=== PATIENT | male | born 1980 | race Caucasian/White ===

== ENCOUNTER 2020-12-24 14:57 | Inpatient (IN) | payer SELFPAY ==
[2020-12-24 15:09] VITALS: BMI 26.6
[2020-12-24 15:34] VITALS: BP 103/71; PULSE 101; RESP 16; TEMP 36.6; O2SAT 98
--- NOTE | 2020-12-24 16:05 | PC.NURSE ---
pts belongings were bagged and placed out of reach of the pt
[2020-12-24 16:07] LABS: Add Urine Microscopic? NO; Charge for UA Resulting for Rev
--- NOTE | 2020-12-24 16:11 | ED_ITS ---
HPI - Psych General: Chief Complaint: Psychiatric Symptoms Stated Complaint: hearing and seeing things Time Seen by Provider: 12/24/20 15:50 History of Present Illness: HPI Narrative: 40-year-old male presents emergency room with complaints of auditory and visual hallucinations. He says he is hearing voices following him about how they will hurt him. Is been going on for last couple weeks about 6 weeks ago he had Covid. He is resolved from it. He has not had any further sequela or difficulty breathing cough or anosmia. He has no personal or family history of psychosis he is not on any medications and never previously been admitted to the hospital for mental health issues. complaint: other (psychosis) Onset (ago): week(s) Duration: getting worse History of same: No Relieving factors: none Exacerbating factors: none Context: significant life stressor (Recent COVID-19 diagnosis) Associated psychiatric symptoms: auditory hallucinations and visual hallucinations Associated symptoms: Reports auditory hallucinations and visual hallucinations; Deny homicidal ideation or suicidal ideation Treatments prior to arrival: none Review of Systems Const: Denies: fever(s), chills, body aches, change in appetite, fatigue or m alaise ENMT: Denies: throat pain, ear or mastoid pain, nasal discharge or nasal congestion Card: Denies: chest pain, edema, dyspnea on exertion or orthopnea Resp: Denies: dyspnea, productive cough or non-productive cough GI: Denies: abdominal pain, nausea, vomiting, hematemesis, coffee ground emesis, diarrhea, constipation, bloating, hematochezia or melena : Denies: flank pain, dysuria, urinary frequency or urinary urgency Skin/Breast: Denies: rash or pruritus Psych: Reports: visual hallucinations and auditory hallucinations; Denies: suicidal ideation or homicidal ideation Physical Exam Const: COMMON NORMALS: no acute distress GENERAL APPEARANCE: cooperative and comfortable ORIENTATION/CONSCIOUSNESS: Yes awake HENMT: COMMON NORMALS: normocephalic and atraumatic HEAD & SCALP: normocephalic and atraumatic Neck/C-Spine: COMMON NORMALS: full ROM, no lymphadenopathy, supple and no JVD Resp: COMMON NORMALS: normal respiratory effort, No retractions, No use of accessory muscles and clear to auscultation bilaterally AUSCULTATION: clear to auscultation bilaterally Cardio: COMMON NORMALS: no JVD, regular rate, regular rhythm and No murmurs present (Cardio) RATE: regular rate RHYTHM: regular rhythm GI: COMMON NORMALS: Soft to palpation and No hepatosplenomegaly present AUSCULTATION: Yes normoactive bowel sounds PALPATION: Yes Soft to palpation, No Tenderness to palpation present (GI), No Guarding due to palpation present (GI) and Yes No hepatosplenomegaly present Extremity: COMMON NORMALS: normal to inspection, capillary refill normal, no clubbing, cyanosis or edema, no calf tenderness and no pedal edema Skin: COMMON NORMALS: no rashes or lesions noted GENERAL SKIN EXAM: no rashes or lesions noted Course Vital Signs: Vital signs: Vital Signs Temperature 98.1 F 12/26/20 16:27 Pulse Rate 81 12/26/20 16:27 Respiratory Rate 17 12/26/20 16:27 Blood Pressure 107/68 12/26/20 16:27 Pulse Oximetry 97 12/26/20 16:27 MDM - Psych MDM Narrative: Medical decision making narrative: Acute psychosis possibly related to recent Covid infection. Urine drug screen positive for methamphetamine and marijuana. Patient does state he uses medical marijuana. Discussed with Dr. Kmi will admit. Lab Data: Labs: Lab Results 12/24/20 12/24/20 12/24/20 Range/Units 15:25 15:25 19:08 WBC 7.5 (4.0-10.0) 10^3/ uL RBC 4.80 (4.1-5.3) 10^6/u L Hgb 11.0 L (11.7-16.6) g/dL Hct 38.2 L (42.0-52.0) % MCV 79.6 L (80-94) fL MCH 22.9 L (28.0-34.0) pg MCHC 28.8 L (30.0-36.0) g/dL RDW 17.5 H (12.1-15.1) % Plt Count 351 (130-400) 10^3/c mm MPV 10.4 (7.4-10.4) fL Neut % (Auto) 54.7 % Lymph % (Auto) 29.1 % Bailey % (Auto) 10.5 % Eos % (Auto) 3.9 % Baso % (Auto) 1.5 % Neut # (Auto) 4.13 (1.8-7.7) 10^3/u L Lymph # (Auto) 2.2 (0.8-4.8) 10^3/u L Bailey # (Auto) 0.8 (0.2-0.9) 10^3/u L Eos # (Auto) 0.3 (0.0-0.8) 10^3/u L Baso # (Auto) 0.1 (0.0-0.1) 10^3/u L Nucleated RBC % (a uto) 0 % Nucleated RBCs # 0.0 /100WBC Sodium (136-145) mmol/L Potassium (3.5-5.1) mmol/L Chloride (98-107) mmol/L Carbon Dioxide (22-29) mmol/L Anion Gap (5-19) BUN (6-20) mg/dL Creatinine (0.7-1.2) mg/dL GFR Calculation (90-130) mL/min Glucose (65-115) mg/dL Calculated Osmolal ity (285-295) mOsm/k g Calcium (8.5-10.5) mg/dL Total Bilirubin (0.15-1.2) mg/dL AST (0-40) U/L ALT (0-41) U/L Alkaline Phosphata se (40-130) IU/L Total Protein (6.6-8.7) g/dL Albumin (3.5-5.2) g/dL Globulin (1.3-4.6) g/dL Urine Color Yellow (Yellow) Urine Appearance Clear (CLEAR) Urine pH 6.5 (5-7) Ur Specific Gravit y 1.015 (1.005-1.030) Urine Protein Neg (Negative) Urine Glucose (UA) Norm (Normal) Urine Ketones Negative (Negative) Urine Blood Neg (Negative) Urine Nitrate Negative (Negative) Urine Bilirubin Neg (Negative) Urine Urobilinogen Norm (Negative) mg/dL Ur Leukocyte Sheridan ase Negative (Negative) Salicylates (3-10) mg/dL Urine Opiates Scre en Negative (Negative) ng/mL Acetaminophen (10-30) ug/mL Ur Barbiturates Sc reen Negative (Negative) ng/mL Ur Phencyclidine S crn Negative (Negative) ng/mL Ur Amphetamines Sc reen Positive H (Negative) ng/mL U Benzodiazepines Scrn Negative (Negative) ng/mL Urine Cocaine Scre en Negative (Negative) ng/mL U Marijuana (THC) Screen Positive H (Negative) ng/mL 12/24/20 Range/Units 19:08 WBC (4.0-10.0) 10^3/ uL RBC (4.1-5.3) 10^6/u L Hgb (11.7-16.6) g/dL Hct (42.0-52.0) % MCV (80-94) fL MCH (28.0-34.0) pg MCHC (30.0-36.0) g/dL RDW (12.1-15.1) % Plt Count (130-400) 10^3/c mm MPV (7.4-10.4) fL Neut % (Auto) % Lymph % (Auto) % Bailey % (Auto) % Eos % (Auto) % Baso % (Auto) % Neut # (Auto) (1.8-7.7) 10^3/u L Lymph # (Auto) (0.8-4.8) 10^3/u L Bailey # (Auto) (0.2-0.9) 10^3/u L Eos # (Auto) (0.0-0.8) 10^3/u L Baso # (Auto) (0.0-0.1) 10^3/u L Nucleated RBC % (a uto) % Nucleated RBCs # /100WBC Sodium 141 (136-145) mmol/L Potassium 3.8 (3.5-5.1) mmol/L Chloride 108 H (98-107) mmol/L Carbon Dioxide 22 (22-29) mmol/L Anion Gap 14.8 (5-19) BUN 9 (6-20) mg/dL Creatinine 0.7 (0.7-1.2) mg/dL GFR Calculation 126.2 (90-130) mL/min Glucose 92 (65-115) mg/dL Calculated Osmolal ity 290 (285-295) mOsm/k g Calcium 8.6 (8.5-10.5) mg/dL Total Bilirubin 0.2 (0.15-1.2) mg/dL AST 14 (0-40) U/L ALT 13 (0-41) U/L Alkaline Phosphata se 82 (40-130) IU/L Total Protein 6.7 (6.6-8.7) g/dL Albumin 3.8 (3.5-5.2) g/dL Globulin 2.9 (1.3-4.6) g/dL Urine Color (Yellow) Urine Appearance (CLEAR) Urine pH (5-7) Ur Specific Gravit y (1.005-1.030) Urine Protein (Negative) Urine Glucose (UA) (Normal) Urine Ketones (Negative) Urine Blood (Negative) Urine Nitrate (Negative) Urine Bilirubin (Negative) Urine Urobilinogen (Negative) mg/dL Ur Leukocyte Sheridan ase (Negative) Salicylates < 0.3 L (3-10) mg/dL Urine Opiates Scre en (Negative) ng/mL Acetaminophen < 5.0 L (10-30) ug/mL Ur Barbiturates Sc reen (Negative) ng/mL Ur Phencyclidine S crn (Negative) ng/mL Ur Amphetamines Sc reen (Negative) ng/mL U Benzodiazepines Scrn (Negative) ng/mL Urine Cocaine Scre en (Negative) ng/mL U Marijuana (THC) Screen (Negative) ng/mL Discharge Plan Discharge Patient Disposition: Admitted As Inpatient Admit Provider: Keven Kim Clinical Impression: Acute psychosis, Drug-induced psychotic disorder, Methamphetamine use Condition: Stable Discharge Diet: Regular Discharge Activity: Resume usual activity Coding Level of Care Code ED Recreation Director for John Fwjulia Exam Comprehensive
[2020-12-24 16:22] LABS: Bilirubin Urine Neg (Negative); Blood Urine Neg (Negative); Glucose Urine UA Norm (Normal); Ketones Urine Negative (Negative); Leukocyte Esterase Urine Negative (Negative); Nitrate Urine Negative (Negative); Protein Urine Neg (Negative); Specific Gravity, Urine 1.015 (1.005-1.030); Urine Appearance Clear (CLEAR); Urine Color Yellow (Yellow); Urobilinogen Urine Norm (Negative); pH Urine 6.5 (5-7)
[2020-12-24 16:38] LABS: Amphetamines Screen Urine Positive (Negative); Barbiturates Screen Urine Negative (Negative); Benzodiazepines Screen Urine Negative (Negative); Cocaine Screen Urine Negative (Negative); Opiate Screen Urine Negative (Negative); PCP Screen Urine Negative (Negative); THC Screen Urine Positive (Negative)
[2020-12-24 18:23] VITALS: BP 104/78; PULSE 89; RESP 16; O2SAT 99
[2020-12-24 19:13] LABS: Basophils # 0.1 10^3/uL (0.0-0.1); Basophils % 1.5 %; Eosinophils # 0.3 10^3/uL (0.0-0.8); Eosinophils % 3.9 %; Hematocrit 38.2 % (42.0-52.0); Lymphocytes # 2.2 10^3/uL (0.8-4.8); Lymphocytes % 29.1 %; Mean Corpuscular HGB Conc 28.8 g/dL (30.0-36.0); Mean Corpuscular Hemoglobin 22.9 pg (28.0-34.0); Mean Corpuscular Volume 79.6 fL (80-94); Mean Platelet Volume 10.4 fL (7.4-10.4); Monocytes # 0.8 10^3/uL (0.2-0.9); Monocytes % 10.5 %; Neutrophils # 4.13 10^3/uL (1.8-7.7); Neutrophils % 54.7 %; Nucleated Red Blood Cells % 0 %; Platelet Count 351 10^3/cmm (130-400); Red Cell Distribution Width 17.5 % (12.1-15.1); White Blood Count 7.5 10^3/uL (4.0-10.0)
[2020-12-24 19:45] LABS: Alanine Aminotransferase 13 U/L (0-41); Albumin Level 3.8 g/dL (3.5-5.2); Alkaline Phosphatase 82 IU/L (40-130); Anion Gap 14.8 (5-19); Aspartate Amino Transferase 14 U/L (0-40); Blood Urea Nitrogen 9 mg/dL (6-20); Calcium 8.6 mg/dL (8.5-10.5); Carbon Dioxide 22 mmol/L (22-29); Chloride 108 mmol/L (98-107); Creatinine Clr Calc Pharmacy 151.9452; Globulin 2.9 g/dL (1.3-4.6); Glomerular Filtration Rate 126.2 mL/min (90-130); Glucose 92 mg/dL (65-115); Osmolality Calculated 290 mOsm/kg (285-295); Potassium 3.8 mmol/L (3.5-5.1); Sodium 141 mmol/L (136-145); Total Bilirubin 0.2 mg/dL (0.15-1.2); Total Protein 6.7 g/dL (6.6-8.7)
[2020-12-24 19:48] LABS: Acetaminophen < 5.0 ug/mL (10-30); Salicylate < 0.3 mg/dL (3-10)
[2020-12-24 20:30] VITALS: BP 106/70; PULSE 96; RESP 15; TEMP 37.1; O2SAT 98
[2020-12-24 21:22] VITALS: BP 108/88; PULSE 90; RESP 15; TEMP 37.2; O2SAT 98
--- NOTE | 2020-12-24 23:08 | PC.NURSE ---
Skin check revealed no wounds or injuries.
[2020-12-25 06:00] VITALS: BP 116/74; PULSE 86; RESP 20; TEMP 36.8; O2SAT 96
[2020-12-25] MEDS: pantoprazole DR 40 mg Tablet PO (09:05)
[2020-12-25] MEDS: nicotine 21 mg Patch 1 PATCH TRANSDERMA (12:07)
--- NOTE | 2020-12-25 12:12 | P.HP_ITS ---
Providers/Chief Complaint Admitting Physician: Keven Kim MD Chief Complaint: SI HPI NPU History of Present Illness Sourav Coronado is a 40 year old male with no previous history of psychiatric difficulties who presented to the [facility] emergency room last night with auditory and visual hallucinations 6 weeks after having Covid. He was medically stabilized and cleared in the ED here. The ED note states: 40-year-old male presents emergency room with complaints of auditory and visual hallucinations. He says he is hearing voices following him about how they will hurt him. It's been going on for last couple weeks. About 6 weeks ago he had Covid. He is resolved from it. He has not had any further sequela or difficulty breathing cough or anosmia. He has no personal or family history of psychosis he is not on any medications and never previously been admitted to the hospital for mental health issues. The patient says that he had started feeling what he calls paranoid few months ago. He says that when people are talking, I get this feeling its about me. This phenomena did not cause him too much distress or interfere with his functioning. The patient had Covid about 6 weeks ago, and after that he started hearing voices. He over hears people talking, such as his girlfriend or friends, and they are plotting to kill him. This is very disturbing to him and he wonders what is wrong with his brain. He does have insight that these are an irregular phenomenon, and not voices of actual people who are going to kill him. No visual hallucinations. He says his mood is usually really good. He denies suicidal or homicidal ideation. He never had hallucinations prior to t his. However, the patient says that he lost 2 or 3 days this week, he realized he was at his parents house and [place], but does not recall how he got there or the couple of days leading up to it. He thought he would come to the hospital to get checked out, as this is very abnormal for him. The patient says that he drinks alcohol 2 or 3 times a week, about 3 or 4 shots of liquor each time. He has never experienced withdrawal symptoms when he stops drinking. He has never had a DUI or experienced blackouts from drinking. He says that he used to use methamphetamine, but has been clean for 5 years. He notes that the urine drug screen was positive for meth during this admission, but does not remember using it. He seems sincere in his puzzlement about it. He says he has a marijuana medical card and smokes regularly. He smokes cigarettes 1 pack/day. The patient says that he was hospitalized here 10 years ago for drug related symptoms. Then he attended outpatient rehab as a part of probation. He did not take psychiatric medications back then and has not taken any psychiatric medications ever in his life. Psychiatric history: As above. Substance use history: As above. Family history: Patient denies mental health issues on either side of the family. Number people on his mother's side use heroin. 2 maternal uncles completed suicide. Psychosocial history: The patient grew up around the , because his father was in the [place]. His father retired to [employer]. He attended [employer] in [place], [place] for high school. He was once and has 3 children from that relationship. He has a girlfriend now, and they are considering living together, but he does not want to move in together until he resolves his current issues. 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 Legal history: No legal difficulties. Medical history: He has peptic ulcer disease and takes sucralfate and omeprazole. Review of Systems General: Reports: 10 or more systems reviewed and unremarkable except in HPI and below Meds NPU Home Medications Medication Instructions Recorded Confirmed Last Taken Type albuterol sulfate [ProAir HFA] 2 puff INHALATION BID PRN 12/25/20 12/25/20 Unknown History pantoprazole [Protonix] 40 mg PO DAILY 12/25/20 12/25/20 Unknown History promethazine-DM 10 ml PO QID PRN 12/25/20 12/25/20 Unknown History Allergies Allergy/AdvReac Type Severity Reaction Status Date / Time amoxicillin Allergy Unknown Verified 12/24/20 15:15 cefaclor [From Ceclor] Allergy Unknown Verified 12/24/20 15:48 erythromycin base Allergy Unknown Verified 12/24/20 15:15 hydrocortisone Allergy Unknown Verified 12/24/20 15:48 [From [place]] Mental Status Exam MSE Comments: The patient made good eye contact and was cooperative and open to the exam. No psychomotor agitation or retardation. Speech was had a regular rate and rhythm without pressure. Alert, oriented to person, place, time, situation. Attention and concentration were intact. Able to spell the word WORLD correctly forwards and backwards. Memory is intact. Remembers 3/3 words immediately and 3/3 at 3 minutes. He knows the names of the past 5 presidents. Mood is anxious and worried. Affect is pleasant, but nervous. Thought process: Logical and goal directed. No racing thoughts or flight of ideas. Thought content: He has auditory hallucinations as described above. No visual hallucinations. There are no delusions noted. No suicidal or homicidal ideation. Insight and judgment are are good, and notable in that people with this degree of hallucinations do not often have this degree of insight. Vitals/I&O/Wt Last Vital Signs Temp 98.2 F 12/25/20 06:00 Pulse 86 12/25/20 06:00 Resp 20 H 12/25/20 06:00 BP 116/74 12/25/20 06:00 Pulse Ox 96 12/25/20 06:00 Weight last 48 hrs Weight 81.647 kg Data NPU : 12/24/20 19:08 12/24/20 19:08 A&P Additional A&P Information Sourav Coronado is a 40 year old male with no previous history of psychiatric difficulties who presented to the [facility] emergency room last night with auditory and visual hallucinations 6 weeks after having Covid. A post Covid psychosis syndrome has been described in which people in their 30s, 40s, and 50s develop psychosis weeks after the infection, and have good insight into what is happening. Of course, there are other causes as well, and we should rule out medical, metabolic, and other causes. 1. Start Abilify 5 mg daily for psychosis. 2. Continue every 15 minute checks for safety. 3. Encourage individual, group and milieu therapies. 4. Encourage sober living treatment after discharge at the highest level of care to which he is willing to commit. Involuntary Hold Information 96 Hour Hold: 96 Hour Involuntary Admission: No Attestations NPU Medical Necessity Statement*: Psychiatric hospitalization is medically necessary to prevent access to lethal means, to reevaluate medication, and to coordinate a safe discharge. Patient will be in the hospital for over 2 midnights. Likely length of stay is 3 to 5 days. Coding Level of Care Code Acute Sewing Machine Maintenance Mechanic for John Davis
[2020-12-25 14:00] VITALS: BP 116/74; PULSE 101; RESP 16; TEMP 36.8; O2SAT 99
[2020-12-25 16:28] VITALS: PULSE 106; RESP 16; O2SAT 100
[2020-12-25] MEDS: ARIPiprazole 10 mg Tablet 5 MG PO (17:51)
[2020-12-25 20:44] VITALS: BP 116/71; PULSE 127; RESP 17; TEMP 36.7; O2SAT 88
[2020-12-26 00:14] VITALS: PULSE 99; RESP 17; O2SAT 98
[2020-12-26 05:58] VITALS: BP 109/72; PULSE 99; RESP 18; TEMP 36.3; O2SAT 97
[2020-12-26] MEDS: pantoprazole DR 40 mg Tablet PO (09:22)
[2020-12-26] MEDS: ARIPiprazole 10 mg Tablet 5 MG PO (09:22)
[2020-12-26] MEDS: ibuprofen 800 mg tablet PO (10:51)
[2020-12-26 14:00] VITALS: BP 107/68; PULSE 81; RESP 17; TEMP 36.7; O2SAT 97
[2020-12-26] MEDS: nicotine 2 mg Gum BUCCAL (15:38)
--- NOTE | 2020-12-26 16:23 | P.DS_ITS ---
Reason for Visit Reason for Visit: SI Brief History: History of Present Illness Sourav Coronado is a 40 year old male with no previous history of psychiatric difficulties who presented to the [facility] emergency room last night with auditory and visual hallucinations 6 weeks after having Covid. He was medically stabilized and cleared in the ED here. The ED note states: 40-year-old male presents emergency room with complaints of auditory and visual hallucinations. He says he is hearing voices following him about how they will hurt him. It's been going on for last couple weeks. About 6 weeks ago he had Covid. He is resolved from it. He has not had any further sequela or di fficulty breathing cough or anosmia. He has no personal or family history of psychosis he is not on any medications and never previously been admitted to the hospital for mental health issues. The patient says that he had started feeling what he calls paranoid few months ago. He says that when people are talking, I get this feeling its about me. This phenomena did not cause him too much distress or interfere with his functioning. The patient had Covid about 6 weeks ago, and after that he started hearing voices. He over hears people talking, such as his girlfriend or friends, and they are plotting to kill him. This is very disturbing to him and he wonders what is wrong with his brain. He does have insight that these are an irregular phenomenon, and not voices of actual people who are going to kill him. No visual hallucinations. He says his mood is usually really good. He denies suicidal or homicidal ideation. He never had hallucinations prior to this. However, the patient says that he lost 2 or 3 days this week, he realized he was at his parents house and [place], but does not recall how he got there or the couple of days leading up to it. He thought he would come to the hospital to get checked out, as this is very abnormal for him. The patient says that he drinks alcohol 2 or 3 times a week, about 3 or 4 shots of liquor each time. He has never experienced withdrawal symptoms when he stops drinking. He has never had a DUI or experienced blackouts from drinking. He says that he used to use methamphetamine, but has been clean for 5 years. He notes that the urine drug screen was positive for meth during this admission, but does not remember using it. He seems sincere in his puzzlement about it. He says he has a marijuana medical card and smokes regularly. He smokes cigarettes 1 pack/day. The patient says that he was hospitalized here 10 years ago for drug related symptoms. Then he attended outpatient rehab as a part of probation. He did not take psychiatric medications back then and has not taken any psychiatric medications ever in his life. Psychiatric history: As above. Substance use history: As above. Family history: Patient denies mental health issues on either side of the family. Number people on his mother's side use heroin. 2 maternal uncles completed suicide. Psychosocial history: The patient grew up around the , because his father was in the [place]. His father retired to [email or web address]. He attended [employer] in [place], [place] for high school. He was once and has 3 children from that relationship. He has a girlfriend now, and they are considering living together, but he does not want to move in together until he resolves his current issues. 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 Legal history: No legal difficulties. Medical history: He has peptic ulcer disease and takes sucralfate and omeprazole. Hospital Course Hospital Course He slowly adjusted to the individual, group and milieu therapies provided. He was started on Abilify and had modest improvement. He was able to contract for safety prior to discharge. During the hospitalization, patient had routine laboratory studies which were within normal limits except for few outliers. Additionally there was a general medical evaluation which was also within normal limits and revealed no new acute processes. Discharge Summary: At the time of discharge, lethality was denied and psychosis was resolving. Mood and anxiety were well managed. Patient endorsed a plan to avoid all drugs of abuse and follow-up with the aftercare recommendations of the treatment team. Patient was evaluated and deemed to be absent credible lethality, and had achieved the maximum benefit from an inpatient hospitalization, so was discharged. Involuntary Hold Information 96 Hour Hold: 96 Hour Involuntary Admission: No Mental Status Exam MSE Comments: This is a well-nourished well-developed white male in hospital scrubs with adequate grooming and eye contact. No abnormal movements. Cooperative with exam in no acute distress. Speech was normal rate and volume. Mood described as better, affect congruent. Thought process organized. Thought content: Patient denied suicidal or homicidal ideation, there were no delusions reported or noted, he denied any auditory or visual hallucination and concentration were intact and memory appeared reliable but none were formally tested. Alert and oriented x3. Insight and judgment are improving and impulse control is improving. Discharge Data Vitals: Last Vital Signs Temp 98.1 F 12/26/20 14:00 Pulse 81 12/26/20 14:00 Resp 17 12/26/20 14:00 BP 107/68 12/26/20 14:00 Pulse Ox 97 12/26/20 14:00 Discharge Plan Discharge Patient Disposition: Home Condition: Stable Prescriptions: New aripiprazole 10 mg Tablet 5 mg PO DAILY 30 Days Qty: 15 RF: 1 Continued ProAir HFA 90 mcg/actuation HFA aerosol inhaler 2 puff INHALATION BID PRN (Reason: Shortness Of Breath Or Wheezing) RF: 0 Protonix 40 mg tablet,delayed release (DR/EC) 40 mg PO DAILY RF: 0 promethazine-DM 6.25-15 mg/5 mL syrup 10 ml PO QID PRN (Reason: Cough) RF: 0 Discharge Orders: Discharge Order (Routine); Ordered 12/26/20 Ordered By: Pérez Villalobos Referrals: [facility] [Other] (Called to schedule an appointment for an initial assessment. Appointments available in office and via phone call. ) [facility] [Outside] (Call to schedule an initial assessment. In patient and out patient treatment options available. ) Discharge Diet: Regular Discharge Activity: Resume usual activity Patient Instructions: Aripiprazole (By mouth), Opioid Safety Discharge Attestations NPU Time Spent in Discharge Care*: less than 30 min Specific Discharge Activities: Specific discharge activities: educating patient, discussing with pcp/other providers, discussing with community case manager/social workers/dc planners, documenting/other paperwork and evaluating patient/reviewing data Coding Level of Care Code Acute Chg FW DC note
[2020-12-26 16:27] VITALS: BP 107/68; PULSE 81; RESP 17; TEMP 36.7; O2SAT 97
--- NOTE | 2020-12-30 16:37 | PC.RESP ---
SMOKING CESSATION INFORMATION SENT TO PATIENT.
== END 2020-12-26 16:57 | disposition home or self-care (01) | DRG 897 ==
LOC: ER 16:48 → NP 18:23
PROVIDERS: Admitting Provider Psychiatry & Neurology Child & Adolescent Psychiatry; Emergency Provider Family Medicine; Visit Provider Psychiatry & Neurology Child & Adolescent Psychiatry
DX: F15.959 Other stimulant use, unspecified with stimulant-induced psychotic disorder, unspecified (principal); F10.10 Alcohol abuse, uncomplicated; F41.9 Anxiety disorder, unspecified; F12.10 Cannabis abuse, uncomplicated; F17.210 Nicotine dependence, cigarettes, uncomplicated; Z88.0 Allergy status to penicillin; Z86.16 Personal history of COVID-19
CPT/HCPCS: 80053; 80306; 80307; 81003; 85025; 99285; J3535